=== PATIENT | female | born 2005 | race Caucasian/White ===

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

== ENCOUNTER 2024-05-01 18:00 | Outpatient (CLI) | payer BC, SELFPAY | END 2024-05-01 18:01 | disposition home or self-care (01) | PROVIDERS: PCP Family Medicine; Visit Provider Physician Assistant | DX: Z01.419 Encounter for gynecological examination (general) (routine) without abnormal findings (principal); R42 Dizziness and giddiness | CPT/HCPCS: 80053; 84443 ==